=== PATIENT | male | born 1955 | race African-American/Black ===

== ENCOUNTER 2021-03-23 13:42 | Inpatient (IN) | payer MEDICAID, OTHER ==
[~2021-03-23] VITALS: Ht 175.3 cm; Wt 86.6 kg
[2021-03-23] MEDS ORDERED: ALBUTEROL (0.083%) 2.5MG/3ML NEB HHN STA (14:16)
[2021-03-23] MEDS ORDERED: IPRATROPIUM BROMIDE (0.02%) 0.5MG/2.5ML NEB HHN STA (14:16)
[2021-03-23] MEDS ORDERED: FUROSEMIDE 20MG/2ML VIAL IVP ONE (14:30)
[2021-03-23] MEDS ORDERED: LEVOFLOXACIN 500MG PREMIX 100 ML IV ONE (14:45)
[2021-03-23 15:06] LABS: BASOPHILS % 0.8 % (0.0-2.0); EOSINOPHILS % 1.5 % (0.0-5.0); HEMATOCRIT. 36.8 % (42.0-52.0); HEMOGLOBIN. 11.7 g/dL (14.0-18.0); LYMPHOCYTES % 10.3 % (20.0-50.0); MEAN CORPUSCULAR HEMOGLOBIN 27.9 pg (28.0-32.0); MEAN CORPUSCULAR VOLUME 87.8 fL (80.0-94.0); MEAN PLATELET VOLUME 9.1 fl (7.4-10.4); MONOCYTES % 9.4 % (2.0-8.0); PLATELET 217 x1000/uL (130-400); RED BLOOD CELL COUNT 4.19 mill/uL (4.7-6.1)
[2021-03-23 15:10] LABS: CHLORIDE 107 mEq/L (98-107)
[2021-03-23] MEDS ORDERED: FUROSEMIDE 20MG/2ML VIAL IVP NR (15:30)
[2021-03-23] MEDS ORDERED: CLONIDINE 0.1MG TABLET PO PRN (16:30)
[2021-03-23] MEDS ORDERED: IPRATROPIUM/ALBUTEROL 0.5-3(2.5)MG/3ML NEB HHN PRN (16:30)
[2021-03-23] MEDS ORDERED: ONDANSETRON HCL 4MG/2ML INJ IV PRN (16:30)
[2021-03-23] MEDS ORDERED: DIPHENHYDRAMINE 50MG/ML VIAL IV PRN (16:30)
[2021-03-23] MEDS ORDERED: ACETAMINOPHEN 325MG TABLET PO PRN (16:30)
[2021-03-23] MEDS ORDERED: AZITHROMYCIN 500MG/250ML 250 ML IV NR (16:37)
[2021-03-23] MEDS ORDERED: CEFTRIAXONE 1 G PREMIX 50 ML IV SCH (17:00)
[2021-03-23] MEDS: FUROSEMIDE 40MG/4ML VIAL IV SCH (17:00)
[2021-03-23 21:10] VITALS: BP 128/82
[2021-03-24] VITALS (7 sets, daily range): BP systolic 96–115; BP diastolic 54–78
[2021-03-24 05:28] LABS: CHLORIDE 106 mEq/L (98-107)
[2021-03-24 05:34] LABS: BASOPHILS % 0.9 % (0.0-2.0); EOSINOPHILS % 1.4 % (0.0-5.0); HEMATOCRIT. 34.3 % (42.0-52.0); HEMOGLOBIN. 11.4 g/dL (14.0-18.0); LYMPHOCYTES % 12.5 % (20.0-50.0); MEAN CORPUSCULAR VOLUME 87.4 fL (80.0-94.0); MEAN PLATELET VOLUME 9.4 fl (7.4-10.4); MONOCYTES % 10.9 % (2.0-8.0); NEUTROPHILS % 74.3 % (40.0-76.0); PLATELET 201 x1000/uL (130-400); RED BLOOD CELL COUNT 3.92 mill/uL (4.7-6.1); RED CELL DISTRIBUTION WIDTH 13.6 % (11.6-14.6)
[2021-03-24] MEDS ORDERED: PNEUMOCOCCAL 23-VAL P-SAC VAC 0.5 ML IM ONE (08:00)
[2021-03-24] MEDS: FUROSEMIDE 40MG/4ML VIAL IV SCH ×2 (09:11→16:58)
[2021-03-24] MEDS ORDERED: MAGNESIUM 2 G PREMIX 50 ML IV NR (09:30)
[2021-03-24] MEDS ORDERED: INFLUENZA VACCINE 05/PF 0.5 ML SYRINGE IM ONE (10:00)
[2021-03-24] MEDS ORDERED: POTASSIUM CHLORIDE 20MEQ TABLET SR PO NR (15:45)
[2021-03-24] MEDS ORDERED: CEFTRIAXONE 1,000 MG in DEXTROSE 5% WATER 50 ML IV SCH (17:00)
[2021-03-24 17:02] LABS: CREATINE KINASE MB FRACTION 1.8 ng/mL (0.5-3.6)
[2021-03-24] MEDS ORDERED: AZITHROMYCIN 500 MG in DEXT 5% WATER 250 ML IV SCH (18:00)
[2021-03-25] VITALS: BP 125/83
[2021-03-25 03:58] VITALS: BP 120/77
[2021-03-25 08:00] VITALS: BP 100/65
[2021-03-25 08:47] LABS: HEMATOCRIT. 39.2 % (42.0-52.0); HEMOGLOBIN. 12.7 g/dL (14.0-18.0); MEAN CORPUSCULAR HEMOGLOBIN 28.4 pg (28.0-32.0); MEAN CORPUSCULAR VOLUME 87.8 fL (80.0-94.0); MEAN PLATELET VOLUME 9.5 fl (7.4-10.4); PLATELET 196 x1000/uL (130-400); RED BLOOD CELL COUNT 4.47 mill/uL (4.7-6.1); RED CELL DISTRIBUTION WIDTH 13.4 % (11.6-14.6)
[2021-03-25] MEDS: FUROSEMIDE 40MG/4ML VIAL IV SCH ×2 (09:00→17:32)
[2021-03-25 09:12] LABS: CHLORIDE 104 mEq/L (98-107)
[2021-03-25 12:00] VITALS: BP 107/74
[2021-03-25 13:09] LABS: PLATELET ESTIMATE NORMAL
[2021-03-25 16:00] VITALS: BP 100/71
[2021-03-25] MEDS: CARVEDILOL 3.125 MG TABLET PO SCH (17:32)
[2021-03-25 20:00] VITALS: BP 107/75
[2021-03-25 23:13] LABS: *AMPHETAMINES SCREEN URINE NEGATIVE (NEGATIVE); *BARBITURATES SCREEN URINE NEGATIVE (NEGATIVE); *BENZODIAZEPINES SCREEN URINE NEGATIVE (NEGATIVE)
[2021-03-25 23:14] LABS: *COCAINE SCREEN URINE NEGATIVE (NEGATIVE); CANNABINOID URINE SCREEN NEGATIVE (NEGATIVE); METHADONE URINE SCREEN NEGATIVE (NEGATIVE); OPIATES URINE SCREEN NEGATIVE (NEGATIVE); PHENCYCLIDINE URINE SCREEN NEGATIVE (NEGATIVE)
[2021-03-26] VITALS (7 sets, daily range): BP systolic 102–114; BP diastolic 65–83
[2021-03-26 07:27] LABS: BASOPHILS % 1.2 % (0.0-2.0); EOSINOPHILS % 6.9 % (0.0-5.0); HEMATOCRIT. 36.8 % (42.0-52.0); HEMOGLOBIN. 11.8 g/dL (14.0-18.0); LYMPHOCYTES % 17.2 % (20.0-50.0); MEAN CORPUSCULAR VOLUME 87.8 fL (80.0-94.0); MEAN PLATELET VOLUME 8.9 fl (7.4-10.4); MONOCYTES % 13.2 % (2.0-8.0); NEUTROPHILS % 61.5 % (40.0-76.0); PLATELET 205 x1000/uL (130-400); RED BLOOD CELL COUNT 4.19 mill/uL (4.7-6.1); RED CELL DISTRIBUTION WIDTH 13.4 % (11.6-14.6)
[2021-03-26 08:08] LABS: CHLORIDE 104 mEq/L (98-107)
[2021-03-26] MEDS: CARVEDILOL 3.125 MG TABLET PO SCH ×2 (08:34→20:45)
[2021-03-26] MEDS: FUROSEMIDE 40MG/4ML VIAL IV SCH ×2 (09:07→18:34)
[2021-03-26] MEDS ORDERED: ENOXAPARIN 80MG/0.8ML SYR SUBCUT NR (13:30)
[2021-03-27] VITALS (13 sets, daily range): BP systolic 96–143; BP diastolic 58–105
[2021-03-27 06:45] LABS: EOSINOPHILS % 7.5 % (0.0-5.0); HEMATOCRIT. 37.7 % (42.0-52.0); HEMOGLOBIN. 12.6 g/dL (14.0-18.0); LYMPHOCYTES % 16.7 % (20.0-50.0); MEAN CORPUSCULAR HEMOGLOBIN 29.1 pg (28.0-32.0); MEAN CORPUSCULAR VOLUME 87.2 fL (80.0-94.0); MEAN PLATELET VOLUME 9.3 fl (7.4-10.4); MONOCYTES % 12.3 % (2.0-8.0); NEUTROPHILS % 62.5 % (40.0-76.0); PLATELET 214 x1000/uL (130-400); RED BLOOD CELL COUNT 4.32 mill/uL (4.7-6.1); RED CELL DISTRIBUTION WIDTH 13.5 % (11.6-14.6)
[2021-03-27 07:39] LABS: INR 1.1; PROTHROMBIN TIME 11.9 sec (9.6-11.0)
[2021-03-27 08:20] LABS: CHLORIDE 103 mEq/L (98-107)
[2021-03-27] MEDS: FUROSEMIDE 40MG/4ML VIAL IV SCH ×2 (08:33→17:12)
[2021-03-27] MEDS: CARVEDILOL 3.125 MG TABLET PO SCH ×2 (08:34→20:41)
[2021-03-27] MEDS ORDERED: IODIXANOL 320MG/ML 100 ML BOTTLE IV ONE (09:37)
[2021-03-27] MEDS ORDERED: HEPARIN 1000 UNITS/ML 10ML ONE (09:37)
[2021-03-27] MEDS ORDERED: LIDOCAINE HCL 1% 10 MG/ML 10ML VIAL ONE (09:37)
[2021-03-27] MEDS ORDERED: MIDAZOLAM HCL 2 MG/2 ML VIAL ONE (09:38)
[2021-03-27] MEDS ORDERED: ASPIRIN/SOD BICARB/CITRIC ACID 324MG TAB EFF ONE (09:38)
[2021-03-27] MEDS ORDERED: FENTANYL CITRATE/PF 50MCG/ML 2ML VIAL ONE (09:38)
[2021-03-27] MEDS ORDERED: MORPHINE SULFATE 2 MG/ML CPJ (NOT FOR IM USE) IV PRN (10:00)
[2021-03-27] MEDS ORDERED: ATROPINE SULFATE 1MG/10ML SYR IV PRN (10:00)
[2021-03-27] MEDS ORDERED: ONDANSETRON HCL 4MG/2ML INJ IV PRN (10:00)
[2021-03-27] MEDS ORDERED: SODIUM CHLORIDE 0.45% 1,000 ML IV SCH (10:00)
[2021-03-27] MEDS: ISOSORBIDE MONONITRATE 30MG TABLET SR 24HR PO SCH (13:42)
[2021-03-28] VITALS (13 sets, daily range): BP systolic 102–165; BP diastolic 45–83
[2021-03-28 06:54] LABS: BASOPHILS % 1.3 % (0.0-2.0); EOSINOPHILS % 9.4 % (0.0-5.0); HEMATOCRIT. 36.7 % (42.0-52.0); HEMOGLOBIN. 11.8 g/dL (14.0-18.0); LYMPHOCYTES % 13.5 % (20.0-50.0); MEAN CORPUSCULAR HEMOGLOBIN 28.4 pg (28.0-32.0); MEAN CORPUSCULAR VOLUME 88.2 fL (80.0-94.0); MEAN PLATELET VOLUME 8.7 fl (7.4-10.4); MONOCYTES % 9.8 % (2.0-8.0); PLATELET 199 x1000/uL (130-400); RED BLOOD CELL COUNT 4.16 mill/uL (4.7-6.1); RED CELL DISTRIBUTION WIDTH 13.2 % (11.6-14.6)
[2021-03-28 07:02] LABS: CHLORIDE 103 mEq/L (98-107)
[2021-03-28] MEDS: FUROSEMIDE 40MG/4ML VIAL IV SCH (08:55)
[2021-03-28] MEDS: CARVEDILOL 3.125 MG TABLET PO SCH ×2 (08:56→21:13)
[2021-03-28] MEDS: ISOSORBIDE MONONITRATE 30MG TABLET SR 24HR PO SCH (08:56)
[2021-03-28] MEDS: FUROSEMIDE 40MG TABLET PO SCH (21:13)
[2021-03-29] VITALS (10 sets, daily range): BP systolic 97–129; BP diastolic 36–61
[2021-03-29] MEDS: ISOSORBIDE MONONITRATE 30MG TABLET SR 24HR PO SCH (08:28)
[2021-03-29] MEDS: CARVEDILOL 3.125 MG TABLET PO SCH (08:28)
[2021-03-29] MEDS: FUROSEMIDE 40MG TABLET PO SCH (08:28)
[2021-03-29] MEDS ORDERED: ISOS30TA91 PO (14:55)
[2021-03-29] MEDS ORDERED: COR3 PO (14:55)
[2021-03-29] MEDS ORDERED: FURO40TA5 PO (14:55)
== END 2021-03-29 17:00 | disposition home or self-care (01) | DRG 192 ==
LOC: ER 13:42 → 6WST 15:47 → EDBEDREQ 16:09 → ENRESERV 20:08 → 3WST 03-26 20:15
PROVIDERS: ADMIT Internal Medicine; ATTEND Internal Medicine
PROC: 4A023N7 Measurement of Cardiac Sampling and Pressure, Left Heart, Percutaneous Approach (ICD-10-PCS; principal; 2021-03-27)
PROC: B2111ZZ Fluoroscopy of Multiple Coronary Arteries using Low Osmolar Contrast (ICD-10-PCS; 2021-03-27)
PROC: 4A033BC Measurement of Arterial Pressure, Coronary, Percutaneous Approach (ICD-10-PCS; 2021-03-27)
DX: I11.0 Hypertensive heart disease with heart failure (principal); J96.00 Acute respiratory failure, unspecified whether with hypoxia or hypercapnia; E46 Unspecified protein-calorie malnutrition; I47.2 Ventricular tachycardia; I27.20 Pulmonary hypertension, unspecified; I42.0 Dilated cardiomyopathy; I48.91 Unspecified atrial fibrillation; I50.23 Acute on chronic systolic (congestive) heart failure; I25.10 Atherosclerotic heart disease of native coronary artery without angina pectoris; D64.9 Anemia, unspecified; E83.42 Hypomagnesemia; I49.3 Ventricular premature depolarization; I34.0 Nonrheumatic mitral (valve) insufficiency; Z20.822 Contact with and (suspected) exposure to COVID-19; Z87.891 Personal history of nicotine dependence; Z68.28 Body mass index [BMI] 28.0-28.9, adult
CPT/HCPCS: 36415; 71045; 80048; 80053; 80061; 80305; 82550; 82553; 83036; 83605; 83735; 83880; 84145; 84443; 84484; 85025; 85379; 86703; 87426; 90686; 90732; 93005; 93306; 93458; 93970; 94640; 99291; C1769; C1887; C1893; J0456; J0696; J1644; J1650; J1940; J1956; J2250; J3010; J3475; J3490; J7060; Q9967; U0003; U0005